=== PATIENT | male | born 1945 | race African-American/Black ===

== ENCOUNTER 2018-01-17 14:55 | Emergency (ER) | payer BC, OTHER ==
[~2018-01-17] VITALS: Ht 167.6 cm; Wt 78.0 kg
[2018-01-17 16:11] LABS: EOSINOPHILS % 2.2 % (0.0-5.0); HEMOGLOBIN. 13.5 g/dL (14.0-18.0); LYMPHOCYTES % 30.1 % (20.0-50.0); MEAN CORPUSCULAR HEMOGLOBIN 28.2 pg (28.0-32.0); MEAN CORPUSCULAR VOLUME 85.7 fL (80.0-94.0); MEAN PLATELET VOLUME 6.9 fl (7.4-10.4); MONOCYTES % 9.1 % (2.0-8.0); NEUTROPHILS % 57.6 % (40.0-76.0); PLATELET 218 x1000/uL (130-400); RED BLOOD CELL COUNT 4.79 mill/uL (4.7-6.1); RED CELL DISTRIBUTION WIDTH 13.2 % (11.6-14.6)
[2018-01-17 16:17] LABS: CHLORIDE 108 mEq/L (98-107)
[2018-01-17 16:19] LABS: PROTHROMBIN TIME 10.5 sec (9.1-11.1)
[2018-01-17 16:21] LABS: ETHANOL BLOOD < 10 mg/dL
[2018-01-17 16:24] LABS: LDL CHOLESTEROL 206 mg/dL (5-100)
[2018-01-17] MEDS ORDERED: ALTEPLASE IV PRN (16:30)
[2018-01-17] MEDS ORDERED: SODIUM CHLORIDE 0.9% IV PRN (16:30)
[2018-01-17] MEDS ORDERED: ALTEPLASE 100MG/VIAL IV ONE (16:30)
[2018-01-17] MEDS ORDERED: WATER FOR INJECTION STERILE IV NR (16:45)
[2018-01-17] MEDS ORDERED: ALTEPLASE IV NR (16:45)
[2018-01-17] MEDS ORDERED: IOHEXOL-350 100 ML BOTTLE ONE (17:55)
[2018-01-17 18:27] LABS: CLARITY URINE CLEAR (CLEAR); COLOR URINE YELLOW (YELLOW); KETONES URINE NEGATIVE (NEGATIVE); LEUKOCYTE ESTERASE URINE 1+ (NEGATIVE); NITRITE URINE NEGATIVE (NEGATIVE); OCCULT BLOOD URINE NEGATIVE (NEGATIVE); PH URINE 7.5 (4.5-8.0); PROTEIN URINE NEGATIVE (NEGATIVE); SPECIFIC GRAVITY URINE 1.013 (1.005-1.030); UROBILINOGEN URINE 0.2 E.U./dL (0.2-1.0)
[2018-01-17 19:46] VITALS: BP 161/97
[2018-01-17 20:13] LABS: *AMPHETAMINES SCREEN URINE NEGATIVE (NEGATIVE); *BARBITURATES SCREEN URINE NEGATIVE (NEGATIVE); *BENZODIAZEPINES SCREEN URINE NEGATIVE (NEGATIVE); *COCAINE SCREEN URINE NEGATIVE (NEGATIVE); CANNABINOID URINE SCREEN NEGATIVE (NEGATIVE); METHADONE URINE SCREEN NEGATIVE (NEGATIVE); OPIATES URINE SCREEN NEGATIVE (NEGATIVE); PHENCYCLIDINE URINE SCREEN NEGATIVE (NEGATIVE)
== END 2018-01-17 22:26 | disposition short-term general hospital (02) ==
LOC: ER 14:55 → EDBEDREQ 15:41 → ER 22:26 → CANBEDREQ 23:10
DX: I63.9 Cerebral infarction, unspecified (principal); I67.1 Cerebral aneurysm, nonruptured; I10 Essential (primary) hypertension; R53.1 Weakness
CPT/HCPCS: 36415; 37195; 70450; 70496; 70498; 71045; 80053; 80305; 81003; 82962; 83721; 84484; 85025; 85610; 93005; 99291; G0482; J2997; Q9967; Z7610; 87086; J7050